=== PATIENT | male | born 1945 | race Caucasian/White ===

== ENCOUNTER 2025-01-16 10:31 | Inpatient (IN) ==
[2025-01-16] MEDS ORDERED: IOPAMIDOL 100 ML BOTTLE IV ONE (10:32)
[2025-01-16 11:06] LABS: Basophils # (Auto) 0.05 K/mcL (0.00-0.30); Basophils % (Auto) 0.7 % (0.0-2.0); Eosinophils # (Auto) 0.03 K/mcL (0.00-0.70); Eosinophils % (Auto) 0.4 % (0.0-7.0); Hematocrit 45.1 % (40.1-51.0); Hemoglobin 14.5 g/dL (13.7-17.5); Lymphocytes # (Auto) 0.78 K/mcL (1.50-4.80); Lymphocytes % (Auto) 11.4 % (15.5-49.0); Mean Corpuscular HGB Conc 32.2 g/dL (31.0-36.0); Monocytes # (Auto) 0.51 K/mcL (0.10-0.90); Monocytes % (Auto) 7.4 % (1.0-12.0); Neutrophils % (Auto) 80.0 % (38.0-78.0); Platelet Count 254 K/mcL (140-440); RBC 4.71 M/mcL (4.63-6.08); WBC 6.9 K/mcL (4.5-11.0)
[2025-01-16] MEDS: IPRATROPIUM/ALBUTEROL 3 ML AMPUL.NEB NEB ONE ×2 (11:10→11:27)
[2025-01-16] MEDS: FUROSEMIDE 20 MG/2 ML VIAL IV ONE (11:25)
[2025-01-16 11:35] LABS: ALT/SGPT 16 U/L (<40); AST/SGOT 20 U/L (<40); Albumin 3.9 gm/dL (3.2-5.2); Albumin/Globulin Ratio 1.9 (1.0-2.3); Alkaline Phosphatase 72 U/L (39-117); Anion Gap 18.0 (8.0-16.0); Bilirubin,Total 0.7 mg/dL (0.1-1.0); Blood Urea Nitrogen 13 mg/dL (8-23); Calcium 8.9 mg/dL (8.6-10.4); Carbon Dioxide 19 mmol/L (22-30); Chloride 102 mmol/L (96-108); Globulin 2.1 gm/dL (2.2-3.7); Glucose 146 mg/dL (70-105); Potassium 4.9 mmol/L (3.3-5.1); Sodium 139 mmol/L (133-145)
[2025-01-16] MEDS: ASPIRIN 81 MG TAB.CHEW CHEWED ONE (12:17)
[2025-01-16 12:37] LABS: Bilirubin,Urine Negative (Negative); Color,Urine Yellow; Glucose,Urine (UA) 500 mg/dL (Negative); Ketones,Urine Negative (Negative); Leukocyte Esterase,Urine Negative /uL (Negative); PH,Urine 5.5 (5.0-9.0); Protein,Urine Negative (Negative); Specific Gravity,Urine 1.015 (1.000-1.035); Urobilinogen,Urine Normal
[2025-01-16] MEDS: FUROSEMIDE 40 MG/4 ML VIAL IV ONE (16:40)
[2025-01-16] MEDS ORDERED: SENNOSIDES 1 TABLET PO SCH (17:37)
[2025-01-16] MEDS ORDERED: ALBUTEROL SULFATE 2.5 MG/3 ML NEBULIZER NEB PRN (17:37)
[2025-01-16] MEDS ORDERED: DEXTROSE 31 GM ORAL.SUSP PO PRN (17:37)
[2025-01-16] MEDS ORDERED: ONDANSETRON 4 MG/2 ML VIAL IV PRN (17:37)
[2025-01-16] MEDS ORDERED: DEXTROSE 50% 50 ML VIAL IV PRN (17:37)
[2025-01-16] MEDS ORDERED: ACETAMINOPHEN 325 MG TABLET PO PRN (17:37)
[2025-01-16] MEDS ORDERED: LACTULOSE 20 GM/30 ML ORAL.SOL PO PRN (17:37)
[2025-01-16] MEDS: INSULIN LISPRO 1 UNIT/0.01 ML UNIT SQ SCH (17:42)
[2025-01-16] MEDS: 0.9 % SODIUM CHLORIDE 10 ML SYRINGE IV SCH (20:42)
[2025-01-17 06:48] LABS: Albumin 3.7 gm/dL (3.2-5.2); Anion Gap 14.0 (8.0-16.0); Blood Urea Nitrogen 19 mg/dL (8-23); Calcium 8.9 mg/dL (8.6-10.4); Carbon Dioxide 23 mmol/L (22-30); Chloride 101 mmol/L (96-108); Glucose 143 mg/dL (70-105); Phosphorous 4.1 mg/dL (2.5-4.5); Potassium 4.8 mmol/L (3.3-5.1); Sodium 138 mmol/L (133-145)
[2025-01-17] MEDS ORDERED: FUROSEMIDE 40 MG/4 ML VIAL IV SCH (08:00)
[2025-01-17] MEDS: FUROSEMIDE 40 MG/4 ML VIAL IV SCH (08:12)
[2025-01-17] MEDS: POTASSIUM CHLORIDE 20 MEQ TABLET PO SCH (08:12)
[2025-01-17] MEDS: ENOXAPARIN 40 MG/0.4 ML SYRINGE SQ SCH (08:12)
[2025-01-17 08:33] LABS: Estimated Average Glucose(eAG) 140 mg/dL; Hemoglobin A1C 6.5 % Hgb (4.0-6.0)
[2025-01-17 16:31] LABS: Albumin 4.1 gm/dL (3.2-5.2); Anion Gap 15.0 (8.0-16.0); Blood Urea Nitrogen 28 mg/dL (8-23); Calcium 9.2 mg/dL (8.6-10.4); Carbon Dioxide 23 mmol/L (22-30); Chloride 97 mmol/L (96-108); Glucose 144 mg/dL (70-105); Phosphorous 4.2 mg/dL (2.5-4.5); Potassium 4.7 mmol/L (3.3-5.1); Sodium 135 mmol/L (133-145)
[2025-01-18 07:32] LABS: Albumin 4.0 gm/dL (3.2-5.2); Anion Gap 14.0 (8.0-16.0); Blood Urea Nitrogen 30 mg/dL (8-23); Calcium 8.8 mg/dL (8.6-10.4); Carbon Dioxide 25 mmol/L (22-30); Chloride 98 mmol/L (96-108); Glucose 113 mg/dL (70-105); Phosphorous 4.0 mg/dL (2.5-4.5); Potassium 3.9 mmol/L (3.3-5.1); Sodium 137 mmol/L (133-145)
[2025-01-18] MEDS: ASPIRIN 81 MG TAB.CHEW CHEWED SCH (09:18)
[2025-01-18] MEDS: ATORVASTATIN 40 MG TABLET PO SCH (09:18)
[2025-01-18] MEDS: METOPROLOL SUCCINATE 25 MG TAB.XL.24H PO SCH (09:18)
[2025-01-18 11:15] VITALS: O2SAT 96
[2025-01-18 11:45] VITALS: TEMP 97.6
[2025-01-18] MEDS: FUROSEMIDE 40 MG/4 ML VIAL IV SCH (12:53)
== END 2025-01-18 14:33 | disposition short-term general hospital (02) | DRG 189 ==
LOC: ED 10:31 → ICU 17:30
PROVIDERS: ADMIT Internal Medicine; ATTEND Internal Medicine